=== PATIENT | female | born 1985 | race African-American/Black ===

== ENCOUNTER 2018-12-16 14:28 | Emergency (ER) | payer SELFPAY ==
[~2018-12-16] VITALS: Ht 165.1 cm; Wt 149.7 kg
[2018-12-16] MEDS ORDERED: ACETAMINOPHEN ES 500 MG TABLET ONE (15:23)
[2018-12-16] MEDS ORDERED: ACETAMINOPHEN 325 MG TABLET PO ONE (15:30)
[2018-12-16] MEDS ORDERED: AMOX/CLAVULANATE 875 MG TABLET PO ONE (16:00)
[2018-12-16] MEDS ORDERED: DOXYCYCLINE HYCLATE (100 MG) 100 MG TABLET PO ONE (16:00)
[2018-12-16] MEDS ORDERED: DOXYCYCLINE HYCLATE (100 MG) 100 MG TABLET ONE (16:17)
[2018-12-16] MEDS ORDERED: AMOX/CLAVULANATE 875 MG TABLET ONE (16:18)
[2018-12-16 17:10] VITALS: BP 165/89
--- NOTE | 2018-12-16 17:20 | NUR ---
Patient discharged to home in stable condition. Written and verbal after care instructions given. Patient verbalizes understanding of instruction.
== END 2018-12-16 17:46 | disposition home or self-care (01) ==
LOC: ER 14:33
DX: L03.116 Cellulitis of left lower limb (principal); E11.9 Type 2 diabetes mellitus without complications; Z98.890 Other specified postprocedural states
CPT/HCPCS: 73620-TC; 82962-TC; 87070-TC

== ENCOUNTER 2019-01-05 05:09 | Emergency (ER) | payer SELFPAY ==
[~2019-01-05] VITALS: Ht 165.1 cm; Wt 127.0 kg
--- NOTE | 2019-01-05 05:30 | NUR ---
PT BIBSELF FOR GEN BODY PAIN/ MUSCLE PAIN X MIDNIGHT; PT AAOX4, PT AMBULATORY, NAD NOTED, PENDING MD GONZÁLES
[2019-01-05] MEDS ORDERED: IV NS 0.9% 500 ML BAG IV ONE (06:30)
[2019-01-05] MEDS ORDERED: ONDANSETRON HCL/PF 4 MG/2 ML VIAL IVP ONE (06:30)
[2019-01-05] MEDS ORDERED: MORPHINE SULFATE INJ 2 MG/ML DISP.SYRIN IV ONE (06:30)
[2019-01-05 06:57] LABS: BASOPHILS # (AUTO) 0.1 /CMM (0.0-0.2); BASOPHILS % (AUTO) 0.8 % (0.0-2.0); EOSINOPHILS % (AUTO) 2.6 % (0.0-6.0); HEMATOCRIT 34 % (33-45); HEMOGLOBIN 10.6 g/dL (11.5-14.8); LYMPHOCYTES # (AUTO) 3.5 /CMM (0.8-4.8); LYMPHOCYTES % (AUTO) 27.4 % (20.0-44.0); MEAN CORPUSCULAR HGB CONC 31 g/dl (31.0-36.0); MEAN CORPUSCULAR VOLUME 70 fL (82-100); MONOCYTES # (AUTO) 0.7 /CMM (0.1-1.30); MONOCYTES % (AUTO) 5.2 % (2.0-12.0); NEUTROPHILS # (AUTO) 8.1 /CMM (1.8-8.9); PLATELET COUNT (AUTO) 466 /CMM (150-450); RED BLOOD CELL COUNT(AUTO) 4.86 MIL/uL (4.0-5.2); WHITE BLOOD COUNT (AUTO) 12.7 K/uL (4.3-11.0)
[2019-01-05 07:03] LABS: CALCIUM, SERUM 8.5 mg/dL (8.5-10.1); CARBON DIOXIDE 25 mmol/L (21-32); CHLORIDE 98 mmol/L (98-107); SODIUM SERUM 134 mmol/L (136-145); UREA NITROGEN, BLOOD 16 mg/dL (7-18)
[2019-01-05 07:07] LABS: GLUCOSE 463 mg/dL (74-106)
[2019-01-05] MEDS ORDERED: INSULIN REGULAR, HUMAN 100 UNIT/ML 10 ML VIAL ONE (07:24)
[2019-01-05] MEDS ORDERED: INSULIN REGULAR, HUMAN 100 UNIT/ML 10 ML VIAL IV ONE (07:30)
[2019-01-05] MEDS ORDERED: MORPHINE SULFATE INJ 4 MG/ML DISP.SYRIN ONE (07:41)
[2019-01-05 08:08] VITALS: BP 145/88
--- NOTE | 2019-01-05 08:09 | NUR ---
Patient discharged to home in stable condition. Written and verbal after care instructions given. Patient verbalizes understanding of instruction.IV removed. Catheter intact and site benign. Pressure and 4x4 applied to site. No bleeding noted.
== END 2019-01-05 08:08 | disposition home or self-care (01) ==
LOC: ER 05:11
DX: E11.65 Type 2 diabetes mellitus with hyperglycemia (principal); M79.10 Myalgia, unspecified site; Z98.890 Other specified postprocedural states; Z79.4 Long term (current) use of insulin
CPT/HCPCS: 36415; 80048; 82962; 84484; 85025; 96374; 96375; 99283; J1815; J2270; J7040

== ENCOUNTER 2019-02-10 20:49 | Emergency (ER) | payer SELFPAY ==
[~2019-02-10] VITALS: Ht 162.6 cm; Wt 149.7 kg
--- NOTE | 2019-02-10 21:10 | NUR ---
PT BIBSELF C/O LOWER BACK/BILAT LEG PAIN S/P GLF X 10 HOURS AGO. NOTED ABRASION TO R LLE. DENIES HEAD TRAUMA/-LOC. AOX4. NAD NOTED. RESP EVEN AND UNLABORED. PT ON MONITOR IN BED 9. WILL CONTINUE TO MONITOR.
--- NOTE | 2019-02-10 21:46 | NUR ---
RADIOLOGY AT BEDSIDE FOR XRAY
[2019-02-10] MEDS ORDERED: HYDROCODONE/APAP 10/325MG 1 EA TABLET ONE (21:47)
[2019-02-10] MEDS ORDERED: HYDROCODONE/APAP 10/325MG 1 EA TABLET PO ONE (22:00)
[2019-02-10 22:22] VITALS: BP 147/88
[2019-02-10] MEDS ORDERED: IBUPROFEN 400 MG TABLET PO ONE (22:30)
[2019-02-10] MEDS ORDERED: IBUPROFEN 400 MG TABLET ONE (22:40)
--- NOTE | 2019-02-10 22:45 | NUR ---
PT REFUSED 800MG MOTRIN. AWARE.
--- NOTE | 2019-02-10 22:49 | NUR ---
CALLED SANYA TO HAVE IMAGES READ
[2019-02-10] MEDS ORDERED: KETOROLAC TROMETHAMINE INJ 60 MG/2 ML VIAL IM ONE ×2 (23:22→23:30)
--- NOTE | 2019-02-10 23:31 | NUR ---
CALLED SANYA TO HAVE IMAGES READ
--- NOTE | 2019-02-11 00:18 | NUR ---
Patient discharged to home in stable condition. Written and verbal after care instructions given. Patient verbalizes understanding of instruction.
--- NOTE | 2019-02-11 00:19 | NUR ---
PT WAITING IN BED FOR HER RIDE HOME
--- NOTE | 2019-02-11 00:39 | NUR ---
PT AMBULATORY WITH STEADY GAIT.
== END 2019-02-11 00:39 | disposition home or self-care (01) ==
LOC: ER 20:54
DX: S80.02XA Contusion of left knee, initial encounter (principal); S80.01XA Contusion of right knee, initial encounter; E10.9 Type 1 diabetes mellitus without complications; Z98.890 Other specified postprocedural states; W01.198A Fall on same level from slipping, tripping and stumbling with subsequent striking against other object, initial encounter; Y93.89 Activity, other specified; Y92.89 Other specified places as the place of occurrence of the external cause; Y99.8 Other external cause status
CPT/HCPCS: 29505; 73564 ×2; 96372; 99283; J1885

== ENCOUNTER 2019-02-14 18:44 | Emergency (ER) | payer SELFPAY ==
[~2019-02-14] VITALS: Ht 175.3 cm; Wt 136.1 kg
--- NOTE | 2019-02-14 19:46 | NUR ---
presented to the ER for c/o rle pain. s/p fall on sun. noted w/ abrasion on the r knee. - swelling. - redness. will cont to monitor ,
[2019-02-14] MEDS ORDERED: MORPHINE SULFATE INJ 4 MG/ML DISP.SYRIN ONE (20:36)
[2019-02-14] MEDS ORDERED: MORPHINE SULFATE INJ 2 MG/ML DISP.SYRIN IM ONE (21:00)
[2019-02-14] MEDS ORDERED: oxyCODONE/APAP (5/325 MG) 1 UDTAB TABLET PO ONE (21:00)
[2019-02-14] MEDS ORDERED: oxyCODONE/APAP (5/325 MG) 1 UDTAB TABLET ONE (21:03)
--- NOTE | 2019-02-14 21:09 | NUR ---
[employer] STRATEGIST AT THE BED SIDE
--- NOTE | 2019-02-14 22:18 | NUR ---
Patient discharged to home in stable condition. Written and verbal after care instructions given. Patient verbalizes understanding of instruction. PT WAS INSTRUCTED NOT TO DRIVE. SISTER WILL PROVIDED RIDE.
[2019-02-14 22:40] VITALS: BP 139/68
== END 2019-02-14 22:41 | disposition home or self-care (01) ==
LOC: ER 18:45
DX: S80.211A Abrasion, right knee, initial encounter (principal); M25.461 Effusion, right knee; E10.9 Type 1 diabetes mellitus without complications; Z98.890 Other specified postprocedural states; W01.0XXA Fall on same level from slipping, tripping and stumbling without subsequent striking against object, initial encounter; Y93.89 Activity, other specified; Y92.89 Other specified places as the place of occurrence of the external cause; Y99.8 Other external cause status
CPT/HCPCS: 29505; 73551; 73564; 73590; 96372; 99283; J2270; 73552

== ENCOUNTER 2019-02-25 09:59 | Emergency (ER) | payer MEDICAID ==
[~2019-02-25] VITALS: Ht 175.3 cm; Wt 143.3 kg
[2019-02-25 10:00] VITALS: BP 142/78
--- NOTE | 2019-02-25 10:10 | NUR ---
DR KAISER AT FOR EVAL.
[2019-02-25] MEDS ORDERED: KETOROLAC TROMETHAMINE 15 MG/ML VIAL ONE (10:24)
--- NOTE | 2019-02-25 10:32 | NUR ---
PER DR. KAISER. VERBAL ORDER OF TORADOL 15MG IM X 1.
[2019-02-26] MEDS ORDERED: KETOROLAC TROMETHAMINE INJ 30 MG/ML VIAL IM ONE (12:00)
== END 2019-02-25 10:30 | disposition home or self-care (01) ==
LOC: ER 09:59
DX: M23.8X1 Other internal derangements of right knee (principal); E10.9 Type 1 diabetes mellitus without complications; Z98.890 Other specified postprocedural states; W01.0XXA Fall on same level from slipping, tripping and stumbling without subsequent striking against object, initial encounter; Y93.89 Activity, other specified; Y92.89 Other specified places as the place of occurrence of the external cause; Y99.8 Other external cause status
CPT/HCPCS: 96372; 99283; J1885

== ENCOUNTER 2019-08-19 09:31 | Emergency (ER) | payer MEDICAID, OTHER ==
[~2019-08-19] VITALS: Ht 165.1 cm; Wt 152.9 kg
--- NOTE | 2019-08-19 09:45 | NUR ---
Patient arrived at unit. with c/o left eye blindness started this morning around 8am, r shoulder pain and numbness, denies injury or trauma on the shoulder, drove self to ER. no acute distress noted. will continue to monitor accordingly
--- NOTE | 2019-08-19 09:46 | NUR ---
Dr. Castillo at bedside
--- NOTE | 2019-08-19 10:24 | NUR ---
Patient discharged to home in stable condition. Prescription provided. Written and verbal after care instructions given. Patient verbalizes understanding of instruction.
[2019-08-19 10:25] VITALS: BP 138/87
== END 2019-08-19 10:25 | disposition home or self-care (01) ==
LOC: ER 09:33
DX: H10.89 Other conjunctivitis (principal); E10.9 Type 1 diabetes mellitus without complications; Z98.890 Other specified postprocedural states